=== PATIENT | male | born 1965 | race Caucasian/White ===

== ENCOUNTER 2024-02-15 16:43 | Emergency (ER) | payer OTHER, SELFPAY ==
[2024-02-15 17:16] VITALS: BP 155/72; PULSE 88; RESP 20; TEMP 36.6; O2SAT 95; BMI 27.3
--- NOTE | 2024-02-15 17:21 | DI.RAD.S_ITS ---
PROCEDURE: XR CHEST 2V INDICATIONS: influenza a, not getting any better TECHNIQUE: 2 views of the chest were acquired. COMPARISON: None. FINDINGS: Surgical changes and devices: None. Lungs and pleura: Low lung volumes can be seen. Generalized interstitial prominence can be seen. Likely mild atelectasis can be seen at the lung bases. Mediastinum: Mediastinal contours are normal. Heart size is normal. Bones and chest wall: No suspicious bony abnormalities. Soft tissues appear unremarkable. IMPRESSION: Low lung volumes with mild generalized interstitial prominence. The imaging appearance is consistent with a viral infection. No superimposed consolidated infiltrates are seen. Dictated by: Ricky Alexander M.D. on 02/15/2024 at 16:45 Approved by: Ricky Alexander M.D. on 02/15/2024 at 16:46
[2024-02-15 19:42] VITALS: BP 148/82; PULSE 81; RESP 18; O2SAT 94
--- NOTE | 2024-02-15 20:35 | ED.URI ---
HPI - URI/Sore Throat General Chief Complaint: Upper Respiratory Symptoms Stated Complaint: coughing, +flu Time Seen by Provider: 02/15/24 20:31 History of Present Illness HPI Narrative: Patient 58-year-old male history of HIV positive well-controlled on medication diabetes on metformin asthma COPD presenting today with ongoing. He reports he was diagnosed with influenza a on February 02. He is from organ he has been seen a couple of different urgent cares. He has been given codeine with guaifenesin Danica Barker he has been on a long tapering dose of prednisone he has a lots of albuterol. He just continues to not feel well. He reports copious amounts of nasal drainage. Quite irritating. He is having improvement in body aches. With a cough this is not going away and he has tried multiple things. No real fever he is eating drinking normally. He has been continuing to work. But he can not lay down at night due to the nasal drainage. He has previously gotten an antibiotic at this point and would like 1. Related Data Previous Rx's Medication Instructions Recorded azithromycin 250 mg tablet 250 mg PO DAILY 4 days #4 tabs 02/15/24 Allergies Allergy/AdvReac Type Severity Reaction Status Date / Time acetaminophen Allergy Verified 02/15/24 17:16 [From Theraflu Multi-Symptom Cold] dextromethorphan Allergy Verified 02/15/24 17:16 [From Theraflu Multi-Symptom Cold] Penicillins Allergy Verified 02/15/24 17:16 phenylephrine Allergy Verified 02/15/24 17:16 [From Theraflu Multi-Symptom Cold] Patient History Social History Smoking Status: Never smoker Smoking Status: Never smoker Exam Initial Vital Signs Initial Vital Signs: Vital Signs Temperature 97.8 F 02/15/24 17:16 Pulse Rate 88 02/15/24 17:16 Respiratory Rate 20 02/15/24 17:16 Blood Pressure 155/72 H 02/15/24 17:16 Pulse Oximetry 95 02/15/24 17:16 Oxygen Delivery Method Room Air 02/15/24 17:16 GENERAL: Alert pleasant 58-year-old male and in no acute distress. HEENT: Head atraumatic,EOMI, pupils reactive, face symmetric, moist mucous membranes CARDIOVASCULAR: Regular rate and rhythm without murmurs, rubs or gallops. RESPIRATORY: Ongoing bronchospastic cough lung sounds are clear he has no respiratory distress or stridor ABDOMEN: Soft, nontender. Normoactive bowel sounds all 4 quadrants. No guarding or rebound. EXTREMITIES: Normal range of motion, no clubbing or edema. Neurovascularly intact NEUROLOGICAL: Alert and oriented x4.Normal gait and speech. Cranial nerves II through XII grossly intact. SKIN: Warm, dry, no laceration, no petechiae, no rashes or lesions. Course Orders Ordered: Discontinued Medications Azithromycin (Azithromycin 250 Mg Tablet) 500 mg PO NOW ONE Stop: 02/15/24 20:53 Last Admin: 02/15/24 21:00 Dose: 500 mg Documented By: VALENTÍN Vital Signs Vital signs: Vital Signs - 8 hr 02/15/24 21:19 Temperature 98.6 F Pulse Rate 85 Respiratory Rate 20 Blood Pressure 150/84 H Pulse Oximetry 98 Oxygen Delivery Method Room Air MDM - URI/Sore Throat Imaging Data Chest x-ray: Radiologist's Impression: PROCEDURE: XR CHEST 2V INDICATIONS: influenza a, not getting any better TECHNIQUE: 2 views of the chest were acquired. COMPARISON: None. FINDINGS: Surgical changes and devices: None. Lungs and pleura: Low lung volumes can be seen. Generalized interstitial prominence can be seen. Likely mild atelectasis can be seen at the lung bases. Mediastinum: Mediastinal contours are normal. Heart size is normal. Bones and chest wall: No suspicious bony abnormalities. Soft tissues appear unremarkable. IMPRESSION: Low lung volumes with mild generalized interstitial prominence. The imaging appearance is consistent with a viral infection. No superimposed consolidated infiltrates are seen. Dictated by: Ricky Alexander M.D. on 02/15/2024 at 16:45 [facility] Narrative Medical decision making narrative: Patient 58-year-old male history of HIV diabetes well controlled. Appears well. Frequently coughing but lung sounds are clear. On a tapering dose of prednisone. X-ray does not show any pneumonia but I do suspect he has some underlying atypical pneumonia or a mycoplasma. Reasonable to start him on azithromycin. Discussed with him out think that he may need further workup. He does not really want to do that today which seems okay he does not appear toxic. However I did strongly encourage him that if the Z-Adrian does not work he needs blood work and further evaluation. Discharge Plan Departure Patient Disposition: Home Clinical Impression: Atypical pneumonia Instructions: Atypical Pneumonia Activity Restrictions/Additional Instructions: *You have been diagnosed with atypical pneumonia *What to do: At this time I think reasonable to try a course of antibiotics. However I strongly encourage you that you will need blood work and further evaluation if he did not feel a better after the antibiotics *Continue to take medications as directed Azithromycin 500 mg once a day for 5 days total *Follow up with your primary care provider in 2-3 days or call [phone] *Return to ER if you should have increasing shortness of breath weakness or any new, worsening or concerning symptoms Prescriptions: New azithromycin 250 mg tablet 250 mg PO DAILY 4 Days Qty: 4 0RF Rx Instructions: start on day 2 of therapy Stand Alone Forms: Patient Portal/API/Survey, Work Release Note
[2024-02-15] MEDS: AZITHROMYCIN 250 MG TABLET 500 MG PO (21:00)
[2024-02-15 21:19] VITALS: BP 150/84; PULSE 85; RESP 20; TEMP 37; O2SAT 98
== END 2024-02-15 21:20 | disposition home or self-care (01) ==
PROVIDERS: Emergency Provider Emergency Medicine
DX: J18.9 Pneumonia, unspecified organism (principal)
CPT/HCPCS: 71046; 99283